=== PATIENT | female | born 1995 | race Two or more races ===

== ENCOUNTER 2024-04-13 21:43 | Emergency (ER) | payer MEDICAID, SELFPAY ==
[2024-04-13 21:44] VITALS: BMI 24.3
[2024-04-13 22:43] VITALS: BP 126/78; PULSE 82; RESP 20; TEMP 36.6; O2SAT 96
--- NOTE | 2024-04-13 22:48 | XR_ITS ---
Examination: CT abdomen and pelvis without contrast. Coronal 3-D reconstructions. Sagittal 2-D reconstructions. Date and time of exam:April 14, 2024 0020 hrs. Indications: Abdominal pain beginning 2 weeks ago CTDI: vol (mGy): 8.08 DLP: (mGycm): 436 Technique: Axial images of the abdomen have been obtained, 3 mm slice thickness Intravenous contrast material has not been administered. Low dose protocols were performed. One or more of the following dose reduction techniques were used; automated exposure control, adjustment of the mA and/or KV according to patient size, use of iterative reconstruction technique. Findings: Fatty infiltration throughout the liver, no focal liver or splenic lesions Mild hepatosplenomegaly No gallstones No pancreatic or adrenal mass Bilateral renal parenchymal scar formation Normal appendix No bowel obstruction No diverticulitis No pelvic mass Urinary bladder intact Impression: No acute process in the abdomen or pelvis
--- NOTE | 2024-04-13 22:48 | XR_ITS ---
Examination: Abdomen sonogram, Limited Date and time of exam: April 13, 2024 at 10:57 PM Indications: Abdominal pain 2 months with nausea Technique: Real-time shay scale transabdominal sonographic images of the upper abdomen obtained. Findings: Normal gallbladder Normal common bile duct 0.3 cm Pancreatic 0.0 cm Liver 16.6 cm fatty infiltration lobular contour no focal liver lesions Normal hepatopedal portal venous flow Patent IVC Impression: Normal gallbladder, normal common bile duct Minimal hepatomegaly fatty liver suspect primary hepatocellular disease
[2024-04-13 23:00] LABS: Collection Type, Urine Clean Catch; RBC,Urine 0 /hpf (0-3); WBC,Urine 0 /hpf (0-5)
[2024-04-13 23:12] LABS: Bacteria,Urine Rare; Bilirubin,Urine Negative (Negative); Blood,Urine Negative (Negative); Clarity,Urine Clear (Clear/Hazy); Color,Urine Lt-Violet (Lt Yel-Yel); Culture Indicated,Urine Not Indicated; Glucose, Urine Negative (Negative); Ketones,Urine Negative (Negative); Leukocyte Esterase,Urine Positive (Negative); Nitrite,Urine Negative (Negative); Protein,Urine Negative (Neg - Trace); Specific Gravity,Urine 1.004 (1.001-1.035); Squamous Epithelial Cell,Urine 1 /hpf (0-5); Urobilinogen,Urine Negative mg/dL (0.0-1.0)
[2024-04-13 23:15] LABS: HCG Qualitative,Urine Negative
[2024-04-14 00:14] LABS: Basophils # (Auto) 0.1 Thou/mm3 (0.0-0.2); Basophils % (Auto) 1 % (0-2.5); Eosinophils # (Auto) 0.2 Thou/mm3 (0.0-0.5); Eosinophils % (Auto) 2 % (0-10); Hematocrit 40.5 % (36.0-46.0); Hemoglobin 13.5 g/dL (12.0-16.0); Immature Granulocytes % (Auto) 0 % (0-0); Immature Granulocytes Auto 0.03 Thou/mm3 (0.00-0.00); Lymphocytes # (Auto) 2.5 Thou/mm3 (1.0-4.8); Lymphocytes % (Auto) 30 % (10-50); Mean Corpuscular HGB Conc 33.3 g/dl (31.0-37.0); Mean Corpuscular Volume 93 fL (80-100); Monocytes # (Auto) 0.5 Thou/mm3 (0.0-0.8); Monocytes % (Auto) 5 % (0-12); Neutrophils # (Auto) 5.2 Thou/mm3 (1.8-7.7); Neutrophils % (Auto) 62 % (37-80); Nucleated Red Blood Cell % 0 /100 WBC (0); Platelet Count 160 Thou/mm3 (140-440); RDW Standard Deviation 42.7 fL (36.4-46.3); Red Blood Count 4.35 Miln/mm3 (4.00-5.20); White Blood Count 8.5 Thou/mm3 (3.6-11.0)
[2024-04-14 00:28] LABS: Alanine Aminotransferase 29 U/L (10-49); Albumin, Serum 4.5 gm/dL (3.5-5.0); Alkaline Phosphatase 106 U/L (46-116); Amylase 97 U/L (30-118); Anion Gap 10 (7-16); Aspartate Amino Transferase 102 U/L (0-34); BUN/Creatinine Ratio 10 Ratio (12-20); Bilirubin,Direct 0.1 mg/dL (0.0-0.3); Bilirubin,Total 0.3 mg/dL (0.3-1.2); Blood Urea Nitrogen < 5 mg/dL (9-23); Calcium 9.2 mg/dL (8.3-10.6); Carbon Dioxide 23.4 mMol/L (20.0-31.0); Chloride 105 mMol/L (98-107); Creatinine (Component) 0.5 mg/dL (0.6-1.3); Glucose 97 mg/dL (74-106); Lipase 47 U/L (12-53); Magnesium 2.1 mg/dL (1.6-2.6); Osmolality,Calculated 272 (275-295); Potassium 4.2 mMol/L (3.4-5.1); Sodium 138 mMol/L (136-145); Total Protein 8.2 gm/dL (5.7-8.2); eGFR > 60 See Note
--- NOTE | 2024-04-14 01:02 | PRELIM_ITS ---
CT scan of the abdomen and pelvis without intravenous contrast (axial sections with sagittal and coronal reformats) April 14, 2024 0030 hours Clinical History: Abdominal pain. Findings: Lung bases are clear. Fatty infiltration is seen in the liver. Subtle dependent hyperdensities are seen in the gallbladder. The pancreas, spleen, adrenals and kidneys are unremarkable. No evidence of bowel obstruction. The appendix is normal (axial images 146 - 158/257). The urinary bladder is unremarkable. The uterus is unremarkable. No adnexal mass. No free fluid or free air. No significant retroperitoneal or mesenteric adenopathy. The osseous structures are unremarkable. Impression: No evidence of acute intra-abdominal or pelvic pathology on this noncontrast study. Other findings as described above. Report Electronically Signed By: Justin Alvarez 04/14/2024 1:01:55 AM [EST]
--- NOTE | 2024-04-14 01:16 | PD.EDABDPN ---
ED Abdominal Pain RME/HPI General Chief Complaint: Abdominal Pain Stated complaint: ABD PAIN Time seen by provider: 04/13/24 22:04 Arrival date/time: 04/13/24 21:43 RME / HPI RME / HPI narrative: This section includes all my notes and documentations, including HPI, PE, and ED course.? Harinder Mar MD HPI: 28 year old female here with one month history of on and off abdominal pain. Localizes the pain in the epigastric region. Occasional nausea. No fever or chills. No other complaints. ROS: All negative except as documented in HPI. Physical Exam: General:? Alert and oriented.? No acute distress when remaining still.?? Eyes:? Conjunctivae and lids clear.? ENT:? No nasal congestion.? Neck:? Supple.? Heart:? RRR.? Lungs:? No respiratory distress.? Good air movement.? No rhonchi, wheezing, rales.?? Abdomen:? Soft and nontender.?? Legs:? No clubbing, cyanosis, edema.? Skin:? Warm and dry.?? Neuro:? Alert and oriented X 3.?? I reviewed all diagnostic test results. My review of the abdominal CT report is?no acute findings. My review of the GB ultrasound report is no acute fnidings. Blood tests and urine tests?unremarkable. At this point, diagnoses include?Gastritis. Prescribed Omeprazole and Famotidine and recommended more outpatient workup. Based on my best medical judgment, made decision no further evaluation or treatment indicated at this time.? Patient understands and agrees to the discharge instructions customized and printed, see below. Discharge instructions from Dr. Mar: ?After extensive evaluation, there is no emergency such as appendicitis needing emergent surgery. Your symptoms may be due to starting stomach ulcer. ?To help heal the ulcer, take Omeprazole 40 mg every morning and Famotidine 40 mg at bedtime for a week then as needed. ?Zofran for nausea/vomiting.? Clear liquid diet for 24 hours.? Then slowly advance diet as tolerated. ?Avoid food and beverages that can trigger and worsen ulcers.? See attached handout. ?See a private doctor on 04/16/2024 for recheck and further care. To make sure there is no serious underlying abdominal condition, ask to help you get more care not available here in the ER.? Such as EGD or scoping the stomach, colonoscopy or scoping the colon, and a referral to see a water resources project manager. ?Seek immediate medical care with worsening or with any concerns. Harinder Mar MD Related Data Home Medications ?Medication ?Instructions ?Recorded ?Confirmed ferrous sulfate 325 mg (65 mg 325 mg PO QDAY 12/02/18 12/03/18 iron) tablet vitamins-iron fumarate 27 1 tab PO QDAY 12/02/18 12/03/18 mg iron-folic acid 0.8 mg tablet ( Vitamin) Previous Rx's ?Medication ?Instructions ?Recorded famotidine 40 mg tablet 40 mg PO QDAY #30 tabs 04/14/24 omeprazole 40 mg capsule,delayed 40 mg PO QDAY #30 caps 04/14/24 release Allergies Allergy/AdvReac Type Severity Reaction Status Date / Time No Known Allergies Allergy Verified 04/13/24 21:46 Course Quality Measures none Orders Category Date Time Status CT abdomen pelvis wo con Stat Exams 04/13/24 22:48 Completed US gall bladder Stat Exams 04/13/24 22:48 Completed Amylase Stat Lab 04/13/24 23:21 Completed BMP [Basic Metabolic Panel] Stat Lab 04/13/24 23:21 Completed CBC Stat Lab 04/13/24 23:21 Completed HCG Qualitative,Urine Stat Lab 04/13/24 22:49 Completed Lipase Stat Lab 04/13/24 23:21 Completed Liver Panel Stat Lab 04/13/24 23:21 Completed Magnesium Stat Lab 04/13/24 23:21 Completed UA, C/S IF [Urinalysis, C/S if Indicated] Stat Lab 04/13/24 22:49 Completed Vital Signs Vital signs: Vital Signs Temperature 97.9 F 04/13/24 22:43 Pulse Rate 82 04/13/24 22:43 Respiratory Rate 20 04/13/24 22:43 Blood Pressure 126/78 04/13/24 22:43 Pulse Oximetry (%) 96 04/13/24 22:43 Oxygen Delivery Method Room Air 04/13/24 22:43 Abdominal Pain MDM Patient data External records reviewed:: [facility] previous records Clinical information provided by:: patient Social determinants that could affect healthcare access:: none Patient has the following chronic illnesses:: None How is presenting disease/condition affected by chronic disease/condition?: no chronic disease Evaluation data The following diagnostics were reviewed and interpreted by me:: lab results and radiology exam(s) Lab and/or radiology exams considered but not ordered:: None Interpretation Summary: Gastritis Medications / Prescriptions Medications or Prescriptions considered but not ordered:: None Medication administrations:: None Consultations Consultation(s) initiated? (list below): No Diagnosis Differential diagnosis abdominal pain: acute appendicitis, calculus of kidney, constipation, diverticulitis, endometriosis, gastroenteritis, pancreatitis and small bowel obstruction Most likely diagnosis given after review of the tests above:: Gastritis Admission Indicated Admission indicated?: not indicated Explain why admission is indicated or not indicated:: Admission was not indicated Admission Request Was there a request for admission?: No Disposition Plan Disposition Plan: Discharge Discharge Attestation Discharge Attestation: The patient and all family members were given an opportunity to ask questions and understood the discharge instructions. Discharge instructions specifically effects, indications for sooner follow up or return to the emergency department, and the expected course of current diagnosis. Patient condition: Stable Discharge Plan Plan Patient Disposition: HOME (Self Care) Prescriptions/Referrals Prescriptions/Med Rec: New famotidine 40 mg tablet 40 mg PO QDAY Qty: 30 0RF omeprazole 40 mg capsule,delayed release(DR/EC) 40 mg PO QDAY Qty: 30 0RF No Action ferrous sulfate 325 mg (65 mg iron) Tablet 325 mg PO QDAY Vitamin 27 mg iron- 0.8 mg Tablet 1 tab PO QDAY Problem List Clinical Impression: Abdominal pain Patient/Caregiver Discharge Instructions Discharge Activity: activity as tolerated Education Materials: ED Gastritis (Adult) Additional Instructions: Discharge instructions from Dr. Mar: ?After extensive evaluation, there is no emergency such as appendicitis needing emergent surgery. Your symptoms may be due to starting stomach ulcer. ?To help heal the ulcer, take Omeprazole 40 mg every morning and Famotidine 40 mg at bedtime for a week then as needed. ?Zofran for nausea/vomiting.? Clear liquid diet for 24 hours.? Then slowly advance diet as tolerated. ?Avoid food and beverages that can trigger and worsen ulcers.? See attached handout. ?See a private doctor on 04/16/2024 for recheck and further care. To make sure there is no serious underlying abdominal condition, ask to help you get more care not available here in the ER.? Such as EGD or scoping the stomach, colonoscopy or scoping the colon, and a referral to see a water resources project manager. ?Seek immediate medical care with worsening or with any concerns. Print Language: Icelandic Stand Alone Forms: Lucie Award Info., Patient Portal Info Letter
== END 2024-04-14 01:24 | disposition home or self-care (01) ==
LOC: SERX 04-14 01:42
PROVIDERS: Emergency Provider Emergency Medicine
DX: K29.70 Gastritis, unspecified, without bleeding (principal)
CPT/HCPCS: 36415; 74176; 76705; 80048; 80076; 81001; 81025; 82150; 83690; 83735; 85025; 99284

== ENCOUNTER 2024-07-06 18:10 | Inpatient (IN) | payer MEDICAID, SELFPAY ==
[2024-07-06 18:45] VITALS: BP 94/61; PULSE 118; RESP 18; TEMP 39.4; O2SAT 99; BMI 28.9
--- NOTE | 2024-07-06 18:51 | EKG_ITS ---
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
--- NOTE | 2024-07-06 18:51 | XR_ITS ---
Examination: PA lateral chest 2 views TECHNIQUE: Upright PA lateral chest 2 views Date time: July 06, 2024 1903 hours Comparison October 07, 2023 INDICATION: Fever coughing for 2 days, sepsis alert today FINDINGS: Normal heart size. Lungs are clear. The osseous structures are intact IMPRESSION: No active disease
--- NOTE | 2024-07-06 18:51 | PD.EDRME ---
Rapid Medical Screening Exam RME Arrival date/time: 07/06/24 18:10 28 year old female present to ED for c/o of fever for 2 days, near syncope, weakness I have greeted and performed a focused initial assessment of this patient. A comprehensive ED assessment and evaluation of the patient, analysis of all test results, and completion of the medical decision making process will be conducted by additional ED providers. Chief Complaint: General Adult/Misc Complain Time Seen by Provider: 07/06/24 18:46 Vital signs: Vital Signs Temperature 103.0 F H 07/06/24 18:45 Pulse Rate 118 H 07/06/24 18:45 Respiratory Rate 18 07/06/24 18:45 Blood Pressure 94/61 07/06/24 18:45 Pulse Oximetry (%) 99 07/06/24 18:45 Oxygen Delivery Method Room Air 07/06/24 18:45
[2024-07-06 19:40] VITALS: TEMP 39.4
[2024-07-06] MEDS: ACETAMINOPHEN 500 MG TABLET 1000 MG PO (19:40)
[2024-07-06 20:09] LABS: Lactate (Lactic Acid) 2.6 mMol/L (0.4-2.0)
[2024-07-06 20:12] LABS: Basophils % (Auto) 1 % (0-2.5); Eosinophils % (Auto) 0 % (0-10); Hematocrit 33.3 % (36.0-46.0); Hemoglobin 11.8 g/dL (12.0-16.0); Immature Granulocytes % (Auto) 1 % (0-0); Immature Granulocytes Auto 0.09 Thou/mm3 (0.00-0.00); Lymphocytes # (Auto) 0.7 Thou/mm3 (1.0-4.8); Lymphocytes % (Auto) 11 % (10-50); Mean Corpuscular HGB Conc 35.4 g/dl (31.0-37.0); Mean Corpuscular Hemoglobin 29.7 pg (25.0-35.0); Mean Corpuscular Volume 84 fL (80-100); Monocytes # (Auto) 0.8 Thou/mm3 (0.0-0.8); Monocytes % (Auto) 13 % (0-12); Neutrophils # (Auto) 4.7 Thou/mm3 (1.8-7.7); Neutrophils % (Auto) 74 % (37-80); Nucleated Red Blood Cell % 0 /100 WBC (0); RDW Standard Deviation 40.9 fL (36.4-46.3); Red Blood Count 3.97 Miln/mm3 (4.00-5.20); White Blood Count 6.4 Thou/mm3 (3.6-11.0)
[2024-07-06] MEDS: cefTRIAXone/D5w 1gm IV premix 1 GM/50 ML BAG IV (20:13)
[2024-07-06] MEDS: SODIUM CHLORIDE 0.9% 1000 ML 1,000 ML 999 ML IV (20:14)
[2024-07-06 20:26] LABS: Partial Thromboplastin Time 25.6 Seconds (22.0-36.0); Prothrombin Time 11.1 Seconds (9.0-12.2)
[2024-07-06 20:28] LABS: B-Type Natriuretic Peptide < 20 pg/mL (0-100)
[2024-07-06 20:43] LABS: Platelet Count 57 Thou/mm3 (140-440); Slide Review Platelets confirmed
[2024-07-06 20:45] LABS: Alanine Aminotransferase 25 U/L (10-49); Albumin, Serum 4.5 gm/dL (3.5-5.0); Albumin/Globulin Ratio 1.1 (1.2-2.2); Alkaline Phosphatase 56 U/L (46-116); Anion Gap 11 (7-16); Aspartate Amino Transferase 73 U/L (0-34); BUN/Creatinine Ratio 19 Ratio (12-20); Bilirubin,Total 1.2 mg/dL (0.3-1.2); Blood Urea Nitrogen 23 mg/dL (9-23); Calcium 8.9 mg/dL (8.3-10.6); Calcium (Corrected) 8.9 mg/dL (8.5-10.1); Carbon Dioxide 22.2 mMol/L (20.0-31.0); Chloride 92 mMol/L (98-107); Creatinine (Component) 1.2 mg/dL (0.6-1.3); Estimated Creatinine Clearance 58.6 mL/min (>60); Glucose 121 mg/dL (74-106); Lipase 78 U/L (12-53); Magnesium 1.7 mg/dL (1.6-2.6); Osmolality,Calculated 256 (275-295); Procalcitonin 9.32 ng/ml (0.0-0.49); Sodium 125 mMol/L (136-145); Total Protein 8.5 gm/dL (5.7-8.2); Troponin I < 0.020 ng/mL (0.0-0.045); eGFR > 60 See Note
[2024-07-06 20:48] LABS: Phosphorous 0.9 mg/dL (2.4-5.1); Potassium 2.5 mMol/L (3.4-5.1)
[2024-07-06 21:31] VITALS: BP 96/61; PULSE 76; RESP 18; TEMP 37.3; O2SAT 100
[2024-07-06 21:31] LABS: Collection Type, Urine Clean Catch
[2024-07-06 21:33] LABS: LDH (Lactate Dehydrogenase) 260 U/L (120-246)
[2024-07-06 21:40] LABS: Bacteria,Urine 3+; Bilirubin,Urine Negative (Negative); Blood,Urine 3+ (Negative); Clarity,Urine Turbid (Clear/Hazy); Color,Urine Yellow (Lt Yel-Yel); Glucose, Urine Negative (Negative); Ketones,Urine Negative (Negative); Leukocyte Esterase,Urine Positive (Negative); Nitrite,Urine Negative (Negative); PH,Urine 6.5 (5.0-7.0); Protein,Urine 3+ (Neg - Trace); RBC,Urine 13 /hpf (0-3); Specific Gravity,Urine 1.018 (1.001-1.035); Squamous Epithelial Cell,Urine 1 /hpf (0-5); Urobilinogen,Urine Negative mg/dL (0.0-1.0); WBC,Urine 22 /hpf (0-5)
[2024-07-06 23:04] LABS: Reflex Lactate? Y
[2024-07-06 23:45] LABS: Lactic Acid, 3 HR 1.2 mMol/L (0.4-2.0)
[2024-07-07] VITALS (12 sets, daily range): BP systolic 99–120; BP diastolic 61–80; PULSE 68–103; RESP 17–100; TEMP 36.6–38.3; O2SAT 98–100
--- NOTE | 2024-07-07 00:07 | XR_ITS ---
Examination: CT abdomen with intravenous contrast CT pelvis with intravenous contrast 2-D coronal reconstructions 2-D sagittal reconstructions Date and time of exam:July 07, 2024 0306 hours Comparison April 14, 2024 INDICATIONS: Abdominal pain today, hypophosphatemia on laboratory examination today. CTDI: vol (mGy) 8.36 DLP: (mGycm) 950 Technique: Multiple axial sections of the abdomen and pelvis have been obtained. 64 slice high-resolution scanner used. 3 mm axial sections have been obtained, post intravenous injection 70 2-D sagittal, coronal reconstructions obtained. Low dose protocols were performed. One or more of the following dose reduction techniques were used; automated exposure control, adjustment of the mA and/or KV according to patient size, use of iterative reconstruction technique. Findings: Diffuse fatty infiltration throughout the liver Mild splenomegaly 14 cm No gallstones No pancreatic or adrenal mass Enlarged edematous left kidney with multiple areas of edema 14 mm cyst versus early abscess posterior left kidney Left perinephric stranding Aorta normal size No bowel obstruction No pericecal inflammatory change Anteverted uterus with 10 mm uterine fundal mass Minimal thickening of the urinary bladder wall IMPRESSION: Findings most consistent with left polyarthritis 14 mm cyst versus early abscess posterior left kidney 10 mm uterine fundal mass, consider pelvic sonography
[2024-07-07] MEDS: SODIUM CHLORIDE 0.9% 500 ML 500 ML 999 ML IV (00:14)
[2024-07-07] MEDS: POTASSIUM CHL 10 mEq IVPB 10 MEQ/100 ML BAG 100 MEQ IV ×4 (00:14→03:56)
[2024-07-07] MEDS: SODIUM CHLORIDE 0.9% 1000 ML 1,000 ML 999 ML IV (00:31)
[2024-07-07] MEDS: POT PHOS 15 mMol in NS 250 ML 15 MMOL/250 ML BAG 62.5 MMOL IV ×2 (01:18→06:18)
[2024-07-07 01:53] LABS: HCG Qualitative,Urine Negative
--- NOTE | 2024-07-07 02:20 | PC.NURSE ---
At this time, pt is out of bed to use restroom.
--- NOTE | 2024-07-07 03:05 | PC.NURSE ---
Pt taken to CT via wheelchair
--- NOTE | 2024-07-07 04:54 | PRELIM_ITS ---
CT scan of the abdomen and pelvis with intravenous contrast (axial sections with sagittal and coronal reformats): July 07, 2024 at 0306 hours Clinical History: Nausea, vomiting and diarrhea, w/severe hypo K+, hyphosphotemia, hypo N+. Comparison: None. Findings: Clear lung bases. The liver, gallbladder, adrenal glands, pancreas are unremarkable. The spleen is enlarged, 13.8 cm long. The left kidney is edematous most prominently in the lower pole lower pole with loss of normal architecture. There is a 1.7 cm hypodensity within a 5 cm diameter edematous area. No urinary tract stone or obstruction is identified. The urinary bladder is normal. There is no free intraperitoneal air or fluid. There is no adnexal cyst or mass. The appendix is normal, (best seen on image 172). The abdominal wall is unremarkable. Bowel caliber is normal. Impression: Splenomegaly. Probable left pyelonephritis with developing abscess. Recommend follow-up to exclude a mass. Discussion Details: Results verbally communicated to : AMBREEN Overton at 04:35 AM 07/07/2024 Report Electronically Signed By: lOvin Gastelum 07/07/2024 4:54:07 AM [EST]
--- NOTE | 2024-07-07 05:00 | PC.NURSE ---
AMBREEN Hand at bedside to discuss plan of care. Pt made aware she will be admitted to the hospital; however, at this time pt states she wants to go home. Discuss risks and consequence of leaving against medical advice. Pt verbalized understanding.
--- NOTE | 2024-07-07 05:00 | PC.NURSE ---
AMBREEN Hand at bedside to discuss plan of care.
--- NOTE | 2024-07-07 05:48 | PD.EDADULT ---
ED General RME/HPI General Chief complaint: General Adult/Misc Complain Stated complaint: FEVER X 2 DAYS, WEAKNES, VISION CHANGES Time Seen by Provider: 07/06/24 18:46 Arrival date/time: 07/06/24 18:10 28-year-old female presents to the ED with complaint of weakness and fatigue, fever, lightheadedness, nausea and vomiting as well as diarrhea. She denies any recent upper respiratory symptoms of runny nose, nasal congestion, ear pain, sore throat, sinus pressure or drainage, cough, shortness of breath, chest pain, abdominal pain, dysuria or urinary frequency. Mode of arrival: ambulatory Limitations: no limitations RME / HPI RME / HPI narrative: 07/06/24 18:10 28 year old female present to ED for c/o of fever for 2 days, near syncope, weakness I have greeted and performed a focused initial assessment of this patient. A comprehensive ED assessment and evaluation of the patient, analysis of all test results, and completion of the medical decision making process will be conducted by additional ED providers. Related Data Home Medications ?Medication ?Instructions ?Recorded ?Confirmed ferrous sulfate 325 mg (65 mg 325 mg PO QDAY 12/02/18 12/03/18 iron) tablet vitamins-iron fumarate 27 1 tab PO QDAY 12/02/18 12/03/18 mg iron-folic acid 0.8 mg tablet ( Vitamin) Previous Rx's ?Medication ?Instructions ?Recorded famotidine 40 mg tablet 40 mg PO QDAY #30 tabs 04/14/24 omeprazole 40 mg capsule,delayed 40 mg PO QDAY #30 caps 04/14/24 release Allergies Allergy/AdvReac Type Severity Reaction Status Date / Time No Known Allergies Allergy Verified 07/06/24 18:13 Review of Systems Review of Systems Systems Reviewed: All systems reviewed, normal except as documented ED Exam Narrative Physical exam: Physical exam reveals a 28-year-old female, nontoxic-appearing, no acute distress, resting comfortably on the gurney. Lungs are clear, regular rate and rhythm without murmurs, abdomen is soft and nontender, no CVA tenderness. General Limitations: Present no limitations Course Course Course Narrative: 28-year-old female presents to the ED with complaint of weakness and fatigue, fever, lightheadedness, nausea and vomiting as well as diarrhea. She denies any recent upper respiratory symptoms of runny nose, nasal congestion, ear pain, sore throat, sinus pressure or drainage, cough, shortness of breath, chest pain, abdominal pain, dysuria or urinary frequency. Physical exam reveals a 28-year-old female, nontoxic-appearing, no acute distress, resting comfortably on the gurney. Lungs are clear, regular rate and rhythm without murmurs, abdomen is soft and nontender, no CVA tenderness. Vital signs reveal a BP 94/61, P118, RR 18, T103.0, O2 sat 99% on room air. CBC reveals a normal white count with minimally low H&H of 11.8/33.3, platelet count is 57. CMP reveals sodium 125, chloride 92, potassium 2.5, glucose 121, osmolality 256, lactic acid 1.2, phosphorus 0.9, AST 73, LDH 260, troponin less than 0.20 and Pro-Calc 9.32. Urinalysis reveals turbid yellow urine with a pH of 6.5 and specific gravity of 1.018. 3+ protein, 3+ blood, leukocyte esterase positive, nitrite negative, 13 RBCs, 22 WBCs, 3+ bacteria, urine hCG is negative. CT Abd/Pelvis: Impression: Splenomegaly. Probable left pyelonephritis with developing abscess. Recommend follow-up to exclude a mass. Patient was given Rocephin 1gm IV as well as 2 liters of Sodium Chloride Sepsis Fluids, K Riders x4 were ordered as well as Potassium Phos. Quality Measures Current suspected stage: sepsis Possible source: genitourinary Blood cultures ordered: completed in ED Antibiotic ordered: Yes Pertinent labs: 07/06/24 07/06/24 19:37 23:33 Lactic Acid 2.6 H mMol/L 1.2 mMol/L (0.4-2.0) (0.4-2.0) Procalcitonin 9.32 H ng/ml (0.0-0.49) sepsis Orders Category Date Time Status Bedside COVID-19 Antigen Test NOW Care 07/06/24 18:52 Active Bedside Influenza A&B Antigen Test NOW Care 07/06/24 18:[address] Screening NOW Care 07/06/24 23:[address] Screening X1 Care 07/06/24 23:50 Active Modular Set Crew Member STAT Care 07/06/24 18:51 Active Continuous Pulse Oximetry STAT Care 07/06/24 18:51 Completed EKG (ED ONLY) *Do not use* NOW Care 07/06/24 18:51 Completed In and Out Catheter X1PRN Care 07/06/24 18:51 Active Insert IV NOW Care 07/06/24 18:51 Active NPO STAT Care 07/06/24 18:51 Active Strict Intake and Output Routine Care 07/06/24 18:[address] abdomen pelvis w con Stat Exams 07/07/24 00:07 Taken EKG (ED Only) Stat Exams 07/06/24 18:51 Draft XR chest 2V Stat Exams 07/06/24 18:51 Completed B-Type Natriuretic Peptide Stat Lab 07/06/24 19:37 Completed Blood Culture (Lab) Stat Lab 07/06/24 19:37 Received CBC Stat Lab 07/06/24 19:37 Completed Comprehensive Metabolic Panel Stat Lab 07/06/24 19:37 Completed HCG Qualitative,Urine Stat Lab 07/06/24 20:52 Completed LDH (Lactate Dehydrogenase) Stat Lab 07/06/24 19:37 Completed Lactate (Lactic Acid) Stat Lab 07/06/24 19:37 Completed Lactic Acid, 3 HR Stat Lab 07/06/24 23:33 Completed Lipase Stat Lab 07/06/24 19:37 Completed Magnesium Stat Lab 07/06/24 19:37 Completed Partial Thromboplastin Time Stat Lab 07/06/24 19:37 Completed Phosphorous Stat Lab 07/06/24 19:37 Completed Procalcitonin Stat Lab 07/06/24 19:37 Completed Prothrombin Time with INR Stat Lab 07/06/24 19:37 Completed Troponin I Stat Lab 07/06/24 19:37 Completed Urinalysis Stat Lab 07/06/24 20:52 Completed Urine Culture Stat Lab 07/06/24 20:52 Received Acetaminophen Tab [Tylenol ES Tab] Med 07/06/24 18:51 Discontinued 1,000 mg PO X1 ONE POT PHOS 15 mMol in NS 250 ML [Pot Phos 15 mMol in NS Med 07/06/24 21:02 Discontinued 250 ml] 15 mmol in 250 ml IV Q4H POTASSIUM CHL 10 mEq IVPB [Kcl Ivpb] Med 07/06/24 21:01 Discontinued 10 meq in 100 ml IV Q1H POTASSIUM CHL 10 mEq IVPB [Kcl Ivpb] Med 07/07/24 00:45 Discontinued 10 meq in 100 ml IV Q1H Sodium Chloride 0.9% 1000 ml [Ns] 1,000 ml Med 07/06/24 18:52 Discontinued IV 999 mls/hr Sodium Chloride 0.9% 1000 ml [Ns] 1,000 ml Med 07/07/24 00:07 Discontinued IV 999 mls/hr Sodium Chloride 0.9% 500 ml [Ns] 500 ml Med 07/06/24 23:50 Discontinued IV 999 mls/hr cefTRIAXone/D5w 1gm IV premix [Rocephin/D5w 1gm IV Med 07/06/24 18:51 Discontinued premix] 1 gm in 50 ml IV X1 Oxygen Delivery NOW RT 07/06/24 18:51 Active Vital Signs Vital signs: Vital Signs Temperature 103.0 F H 07/06/24 18:45 Pulse Rate 118 H 07/06/24 18:45 Respiratory Rate 18 07/06/24 18:45 Blood Pressure 94/61 07/06/24 18:45 Pulse Oximetry (%) 99 07/06/24 18:45 Oxygen Delivery Method Room Air 07/06/24 18:45 Discharge Plan Plan Patient Disposition: Admit Acute Care w/in Hospital Discharge Disposition comment: Stable Prescriptions/Referrals Prescriptions/Med Rec: No Action ferrous sulfate 325 mg (65 mg iron) Tablet 325 mg PO QDAY Vitamin 27 mg iron- 0.8 mg Tablet 1 tab PO QDAY famotidine 40 mg tablet 40 mg PO QDAY Qty: 30 0RF omeprazole 40 mg capsule,delayed release(DR/EC) 40 mg PO QDAY Qty: 30 0RF Referrals: Zoë Blake [employer] [Primary Care Provider] - In 1 week Problem List Clinical Impression: Pyelonephritis, Sepsis, Acute hypokalemia, Acute hyponatremia Patient/Caregiver Discharge Instructions Print Language: Bengali Stand Alone Forms: Lucie Award Info., Patient Portal Info Letter PA/PIECE MEAT TRIMMER Supervising Physician PA/PIECE MEAT TRIMMER Supervising Physician: Dr. Isabela GUTIERREZ Narrative MDM hospital course (for use when minimal MDM required): 28-year-old female presents to the ED with complaint of weakness and fatigue, fever, lightheadedness, nausea and vomiting as well as diarrhea. She denies any recent upper respiratory symptoms of runny nose, nasal congestion, ear pain, sore throat, sinus pressure or drainage, cough, shortness of breath, chest pain, abdominal pain, dysuria or urinary frequency. Physical exam reveals a 28-year-old female, nontoxic-appearing, no acute distress, resting comfortably on the gurney. Lungs are clear, regular rate and rhythm without murmurs, abdomen is soft and nontender, no CVA tenderness. Vital signs reveal a BP 94/61, P118, RR 18, T103.0, O2 sat 99% on room air. CBC reveals a normal white count with minimally low H&H of 11.8/33.3, platelet count is 57. CMP reveals sodium 125, chloride 92, potassium 2.5, glucose 121, osmolality 256, lactic acid 1.2, phosphorus 0.9, AST 73, LDH 260, troponin less than 0.20 and Pro-Calc 9.32. Urinalysis reveals turbid yellow urine with a pH of 6.5 and specific gravity of 1.018. 3+ protein, 3+ blood, leukocyte esterase positive, nitrite negative, 13 RBCs, 22 WBCs, 3+ bacteria, urine hCG is negative. CT Abd/Pelvis: Impression: Splenomegaly. Probable left pyelonephritis with developing abscess. Recommend follow-up to exclude a mass. Patient was given Rocephin 1gm IV as well as 2 liters of Sodium Chloride Sepsis Fluids, K Riders x4 were ordered as well as Potassium Phos. Clinical Information Provided by: patient Medical Records reviewed None Meds/Rx considered, not ordered None Labs/Rad/Tests considered, not ordered None Chronic Illness/Social Conditions which may negatively complicate care or outcome(s)-explain: None or not applicable Labs Lab(s) Interpretation(s): CBC reveals a normal white count with minimally low H&H of 11.8/33.3, platelet count is 57. CMP reveals sodium 125, chloride 92, potassium 2.5, glucose 121, osmolality 256, lactic acid 1.2, phosphorus 0.9, AST 73, LDH 260, troponin less than 0.20 and Pro-Calc 9.32. Urinalysis reveals turbid yellow urine with a pH of 6.5 and specific gravity of 1.018. 3+ protein, 3+ blood, leukocyte esterase positive, nitrite negative, 13 RBCs, 22 WBCs, 3+ bacteria, urine hCG is negative. Imaging Imaging Interpretation(s): CT Abd/Pelvis: Impression: Splenomegaly. Probable left pyelonephritis with developing abscess. Recommend follow-up to exclude a mass. Medication Administration(s) Medication Administration History Discontinued Medications Acetaminophen (Acetaminophen 500 Mg Tablet) 1,000 mg PO X1 ONE Stop: 07/06/24 18:52 Last Admin: 07/06/24 19:40 Dose: 1,000 mg Documented By: Ceftriaxone Sodium/Dextrose (Rocephin/D5w 1gm Iv Premix) 1 gm in 50 mls @ 100 mls/hr IV X1 ONE Stop: 07/06/24 19:20 Last Infusion: 07/06/24 20:53 Dose: Infused Documented By: Admin: 07/06/24 20:13 Dose: 100 mls/hr Documented By: SE Sodium Chloride (Ns) 1,000 mls @ 999 mls/hr IV .Q1H1M ONE Stop: 07/06/24 19:52 Last Infusion: 07/06/24 22:55 Dose: Infused Documented By: Admin: 07/06/24 20:14 Dose: 999 mls/hr Documented By: SE Potassium Chloride (Kcl Ivpb) 10 meq in 100 mls @ 100 mls/hr IV Q1H KODY Stop: 07/07/24 01:00 Last Infusion: 07/07/24 01:14 Dose: Infused Documented By: Admin: 07/07/24 01:05 Dose: Not Given Documented By: CCT Non-Admin Reason: Wrong Time Admin: 07/07/24 01:05 Dose: Not Given Documented By: CCT Non-Admin Reason: Wrong Time Admin: 07/07/24 01:05 Dose: Not Given Documented By: CCT Non-Admin Reason: Wrong Time Admin: 07/07/24 00:14 Dose: 100 mls/hr Documented By: CCT Potassium Phosphate (Pot Phos 15 Mmol In Ns 250 Ml) 15 mmol in 250 mls @ 62.5 mls/hr IV Q4H KODY Stop: 07/07/24 05:01 Last Admin: 07/07/24 01:18 Dose: 62.5 mls/hr Documented By: CCT Sodium Chloride (Ns) 500 mls @ 999 mls/hr IV .Q31M ONE Stop: 07/07/24 00:20 Last Infusion: 07/07/24 01:21 Dose: Infused Documented By: Admin: 07/07/24 00:14 Dose: 999 mls/hr Documented By: CCT Sodium Chloride (Ns) 1,000 mls @ 999 mls/hr IV .Q1H1M ONE Stop: 07/07/24 01:07 Last Infusion: 07/07/24 01:22 Dose: Infused Documented By: Admin: 07/07/24 00:31 Dose: 999 mls/hr Documented By: CCT Potassium Chloride (Kcl Ivpb) 10 meq in 100 mls @ 100 mls/hr IV Q1H KODY Stop: 07/07/24 03:44 Last Infusion: 07/07/24 05:15 Dose: Infused Documented By: Admin: 07/07/24 03:56 Dose: 100 mls/hr Documented By: Infusion: 07/07/24 03:24 Dose: Infused Documented By: Admin: 07/07/24 02:24 Dose: 100 mls/hr Documented By: Infusion: 07/07/24 02:20 Dose: Infused Documented By: Admin: 07/07/24 01:14 Dose: 100 mls/hr Documented By: CCT Ceftriaxone 1 g, sodium chloride/sepsis fluids 2500 mL, potassium chloride 40 mEq, potassium phosphate 15 mmol administered, and Tylenol 1 g p.o. Diagnosis Differential Diagnosis ED Complaint MDM: Influenza, COVID, pneumonia, colitis, pyelonephritis, diverticulitis Diagnoses ruled out and/or further discussions: Pneumonia, colitis, diverticulitis
--- NOTE | 2024-07-07 06:00 | PC.NURSE ---
At this time, pt states she is ok with being admitted. AMBREEN Hand made aware.
--- NOTE | 2024-07-07 06:15 | PC.NURSE ---
Pt out of bed to use restroom.
--- NOTE | 2024-07-07 07:47 | XR_ITS ---
Examination: Retroperitoneal ultrasound, complete Technique: Multiple high resolution grayscale images of the retroperitoneum obtained, including kidneys and bladder. Exam date and time:July 07, 2024 0810 hrs. Indications: Fever vomiting diarrhea beginning 6 days ago Findings: Right kidney 12.5 cm cortex 2.0 cm Left kidney 13.0 cm renal cortex 1.8 cm Mild renal parenchymal scar formation No hydronephrosis No bladder mass or bladder calculi Bladder prevoid volume 433 cc Impression: Mild bilateral renal parenchymal scar formation No hydronephrosis
[2024-07-07] MEDS: PIPER/TAZO 3.375 GM PREMIX 3.375 GM/50 ML BAG IV (08:04)
--- NOTE | 2024-07-07 08:56 | EDNOTE_ITS ---
Emergency Room Addendum Addendum Narrative: 0630: Care assumed from Peace Storey. Past medical, surgical, social and family history reviewed. Vitals and home medications reviewed. I will assume the care of the patient at this time, pending remainder of diagnostic tests and final disposition. Please refer to the emergency department record for history and examination from initial visit.? Physical exam by me shows patient under no acute distress at this time. 0939: Discussed test HPI, PMHx, lab, radiology results and/or management with resident working with hospitalist Dr. Chavez. Will admit for further evaluation and management. Accepts patient for admission. Diagnoses: -Acute hypokalemia -UTI -Elevated procalcitonin RADIOLOGY Procedure(s): US renal BI Accession Number(s): [id number] cc: Dave Galloway MD; Yinka Pedroza MD; Zoë Blake NP~ Examination: Retroperitoneal ultrasound, complete Technique: Multiple high resolution grayscale images of the retroperitoneum obtained, including kidneys and bladder. Exam date and time:July 07, 2024 0810 hrs. Indications: Fever vomiting diarrhea beginning 6 days ago Findings: Right kidney 12.5 cm cortex 2.0 cm Left kidney 13.0 cm renal cortex 1.8 cm Mild renal parenchymal scar formation No hydronephrosis No bladder mass or bladder calculi Bladder prevoid volume 433 cc Impression: Mild bilateral renal parenchymal scar formation No hydronephrosis Dictated By: Yinka Pedroza MD Procedure(s): CT abdomen pelvis w con Accession Number(s): [id number] cc: Yinka Pedroza MD; Zoë Blake NP; Peace Storey Examination: CT abdomen with intravenous contrast CT pelvis with intravenous contrast 2-D coronal reconstructions 2-D sagittal reconstructions Date and time of exam:July 07, 2024 0306 hours Comparison April 14, 2024 INDICATIONS: Abdominal pain today, hypophosphatemia on laboratory examination today. CTDI: vol (mGy) 8.36 DLP: (mGycm) 950 Technique: Multiple axial sections of the abdomen and pelvis have been obtained. 64 slice high-resolution scanner used. 3 mm axial sections have been obtained, post intravenous injection 70 2-D sagittal, coronal reconstructions obtained. Low dose protocols were performed. One or more of the following dose reduction techniques were used; automated exposure control, adjustment of the mA and/or KV according to patient size, use of iterative reconstruction technique. Findings: Diffuse fatty infiltration throughout the liver Mild splenomegaly 14 cm No gallstones No pancreatic or adrenal mass Enlarged edematous left kidney with multiple areas of edema 14 mm cyst versus early abscess posterior left kidney Left perinephric stranding Aorta normal size No bowel obstruction No pericecal inflammatory change Anteverted uterus with 10 mm uterine fundal mass Minimal thickening of the urinary bladder wall IMPRESSION: Findings most consistent with left polyarthritis 14 mm cyst versus early abscess posterior left kidney 10 mm uterine fundal mass, consider pelvic sonography Dictated By: Yinka Pedroza MD Procedure(s): XR chest 2V Accession Number(s): [id number] cc: Yinka Pedroza MD; Zoë Blake NP; Iban Beltran PA-C~ Examination: PA lateral chest 2 views TECHNIQUE: Upright PA lateral chest 2 views Date time: July 06, 2024 1903 hours Comparison October 07, 2023 INDICATION: Fever coughing for 2 days, sepsis alert today FINDINGS: Normal heart size. Lungs are clear. The osseous structures are intact IMPRESSION: No active disease Dictated By: Yinka Pedroza MD
--- NOTE | 2024-07-07 09:45 | ESHP_ITS ---
Documentation for date of: 07/07/24 HPI History of Present Illness Chief complaint: Nausea/vomiting/diarrhea History of present illness: 28-year-old female G4, P5 (all term pregnancies, 1 set of twins) with past medical history of gastric ulcer presenting to the ED on 07/07 with episodes of nausea/vomiting/diarrhea along with fever and chills. 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 Patient states that she went home and that is when she started developing some episode of chills but she did not check her temperature. Patient denies having any sick contacts, recent travels or any changes to dietary habits. Of note, patient has a prior admission for septic shock secondary to urinary tract infection. Patient denies having any dysuria, increased urinary frequency but does state that she has lower back pain which has progressively worsened throughout the week. Patient otherwise denies any concerning cardiac symptoms at this time and denies taking any prescription medication. Medical history: As listed Surgical history: x 1 Allergies: NKDA Medications: Pending official med rec, patient denies taking any prescription medications Family history: Noncontributory Social history: Patient currently does not work, has been incarcerated in the past, has 5 children, lives with spouse and children, denies any tobacco or illicit drug use. Occasional alcohol 1 glass of wine every other day or so. ROS: All 12 systems assessed and the patient denies unless otherwise stated in HPI In the ED, patient presented with soft blood pressure 94/61, tachycardic 118, respiratory rate of 18, febrile 103.0 ?F but satting 99 on room air. Pertinent lab findings included WBC of 6.4, hemoglobin 11.8 with MCV of 84, platelet count of 57 sodium 125, potassium 2.5, phosphorus 0.9, magnesium 1.7, AST 73, ALT 25, alk phos 56, LDH 260, troponin less than 0.020, BNP less than 20. Urinalysis shows turbid urine with 3+ proteinuria, 3+ hematuria, pyuria and bacteria Beta- hCG negative. Chest x-ray showed no active disease, EKG showed sinus tachycardia with left axis deviation but no concerning ST changes, CT abdomen pelvis initially showed a 14 mm cyst/early abscess in the posterior left kidney, 10 mm uterine fundal mass, renal ultrasound showed mild bilateral renal parenchymal scar but no hydronephrosis. And pelvic ultrasound showed no ureteral or intrauterine mass. Patient will be admitted for sepsis secondary to urinary tract infection and started on IV antibiotics. Exam Vital Signs Temp Pulse Resp BP Pulse Ox O2 Del Method 98.8 F 103 H 17 120/80 99 Room Air 07/07/24 08:00 07/07/24 08:00 07/07/24 08:00 07/07/24 08:00 07/07/24 08:00 07/07/24 08:00 Narrative Exam Physical Exam: GENERAL: Awake, answering questions appropriately, appears stated age HEENT: NC/AT. Moist mucosa. PERRLA/EOMI. CARDIO: Heart RRR, no obvious murmurs, no JVD. PULM: No coughing or visible SOB. Lungs CTA B/L. GI: Abdomen soft, NT/ND, +BS. URO/UPTWIST SPINNER: CVA tenderness noted, especially on the left SKIN/MSK/EXT: No wounds/discoloration/rashes/edema/amputations. +Pedal pulses present B/L. NEURO: Oriented x3, Moves extremities x4, no focal neurologic deficits noted Results: Labs 07/06/24 19:37 07/07/24 09:59 Labs: Short CBC 07/06/24 Range/Units 19:37 WBC 6.4 (3.6-11.0) Thou/mm3 Hgb 11.8 L (12.0-16.0) g/dL Hct 33.3 L (36.0-46.0) % Plt Count 57 L (140-440) Thou/mm3 BMP 07/06/24 19:37 Sodium 125 L Potassium 2.5 L* Chloride 92 L Carbon Dioxide 22.2 BUN 23 Creatinine 1.2 Glucose 121 H Calcium 8.9 Cardiac Enzymes 07/06/24 Range/Units 19:37 Troponin I < 0.020 (0.0-0.045) ng/mL Liver Function 07/06/24 Range/Units 19:37 Total Bilirubin 1.2 (0.3-1.2) mg/dL AST 73 H (0-34) U/L ALT 25 (10-49) U/L Alkaline Phosphatase 56 (46-116) U/L Albumin 4.5 (3.5-5.0) gm/dL Urine 07/06/24 Range/Units 20:52 Urine Color Yellow (Lt Yel-Yel) Urine Clarity Turbid A (Clear/Hazy) Urine pH 6.5 (5.0-7.0) Ur Specific [place] 1.018 (1.001-1.035) Urine Protein 3+ A (Neg - Trace) Urine Glucose (UA) Negative (Negative) Quality Measures Quality Measures sepsis Current suspected stage: sepsis Possible source: genitourinary Blood cultures ordered: completed in ED Antibiotic ordered: Yes Medications Home Medications and Allergies Home Medications ?Medication ?Instructions ?Recorded ?Confirmed ?Type ferrous sulfate 325 mg (65 mg 325 mg PO QDAY 12/02/18 12/03/18 History iron) tablet vitamins-iron fumarate 27 1 tab PO QDAY 12/0212/03/18 History mg iron-folic acid 0.8 mg tablet ( Vitamin) Allergies Allergy/AdvReac Type Severity Reaction Status Date / Time No Known Allergies Allergy Verified 07/06/24 18:13 Visit Medications Acetaminophen (Acetaminophen 325 Mg Tablet) 650 mg PO Q6H PRN PRN Reason: Pain 1-3 and/or Fever >100.1 Stop: 08/06/24 09:37 Heparin Sodium (Porcine) (Heparin Sod Inj 5000 Unit/Ml Vial) 5,000 unit SC Q12HR KODY Stop: 07/21/24 20:59 Magnesium Sulfate (Magnesium Sulfate Ivpb) 4 gm in 50 mls @ 12.5 mls/hr IV X1 ONE Stop: 07/07/24 13:43 Ondansetron HCl (Ondansetron Inj 2 Mg/Ml Inj 2 Ml) 4 mg IV Q6H PRN; Protocol PRN Reason: NAUSEA OR VOMITING Stop: 08/06/24 09:37 Sennosides (Senna Tablet) 1 tab PO QDAY KODY; Protocol Stop: 08/07/24 08:59 Discontinued Medications Acetaminophen (Acetaminophen 500 Mg Tablet) 1,000 mg PO X1 ONE Stop: 07/06/24 18:52 Last Admin: 07/06/24 19:40 Dose: 1,000 mg Ceftriaxone Sodium/Dextrose (Rocephin/D5w 1gm Iv Premix) 1 gm in 50 mls @ 100 mls/hr IV X1 ONE Stop: 07/06/24 19:20 Last Infusion: 07/06/24 20:53 Dose: Infused Sodium Chloride (Ns) 1,000 mls @ 999 mls/hr IV .Q1H1M ONE Stop: 07/06/24 19:52 Last Infusion: 07/06/24 22:55 Dose: Infused Potassium Chloride (Kcl Ivpb) 10 meq in 100 mls @ 100 mls/hr IV Q1H KODY Stop: 07/07/24 01:00 Last Infusion: 07/07/24 01:14 Dose: Infused Potassium Phosphate (Pot Phos 15 Mmol In Ns 250 Ml) 15 mmol in 250 mls @ 62.5 mls/hr IV Q4H KODY Stop: 07/07/24 05:01 Last Admin: 07/07/24 06:18 Dose: 62.5 mls/hr Sodium Chloride (Ns) 500 mls @ 999 mls/hr IV .Q31M ONE Stop: 07/07/24 00:20 Last Infusion: 07/07/24 01:21 Dose: Infused Sodium Chloride (Ns) 1,000 mls @ 999 mls/hr IV .Q1H1M ONE Stop: 07/07/24 01:07 Last Infusion: 07/07/24 01:22 Dose: Infused Potassium Chloride (Kcl Ivpb) 10 meq in 100 mls @ 100 mls/hr IV Q1H [facility] Stop: 07/07/24 03:44 Last Infusion: 07/07/24 05:15 Dose: Infused Piperacillin/Tazobactam/Dextrose (Zosyn) 3.375 gm in 50 mls @ 100 mls/hr IV X1 ONE Stop: 07/07/24 08:16 Last Infusion: 07/07/24 09:05 Dose: Infused Assessment & Plan Plan 28-year-old female G4, P5 (all term pregnancies, 1 set of twins) with past medical history of gastric ulcer presenting to the ED on 07/07 with episodes of nausea/vomiting/diarrhea along with fever and chills will be admitted for sepsis secondary to urinary tract infection and started on IV antibiotics. #Sepsis secondary to urinary tract infection #Thrombocytopenia Patient presenting to the ED with nausea/vomiting/diarrhea along with fevers Patient denies any dysuria, urinary frequency but does state that she has left CVA tenderness which is evident on physical exam Patient does have a history of septic shock secondary to urinary tract infection in the past with endorgan dysfunction Currently presenting with early signs of urinary tract infection and sepsis (tachycardia, febrile) with thrombocytopenia, elevated Pro-Dave Urinalysis shows turbid urine with 3+ proteinuria, 3+ hematuria, pyuria and bacteria Beta-hCG negative. Chest x-ray showed no active disease, EKG showed sinus tachycardia with left axis deviation but no concerning ST changes, CT abdomen pelvis initially showed a 14 mm cyst/early abscess in the posterior left kidney,renal ultrasound showed mild bilateral renal parenchymal scar but no hydronephrosis In the ED, patient was given sepsis bolus 2.5 L along with 1 g of ceftriaxone Plan: Started patient on IV Zosyn 3.375 Q8 hours Urine and blood cultures pending #Normocytic anemia Hemoglobin 11.8 with MCV of 84 Differentials include: Iron deficiency anemia, anemia of chronic disease, vitamin deficiency, hemolytic anemia; less likely to be bone marrow suppression Patient does have elevated LDH but bilirubin is high normal at 1.2; cannot rule out hemolytic anemia Plan: Follow-up on iron panel, ferritin Reticulocyte count Peripheral blood smear #Electrolyte abnormalities #Hypokalemia #Hypophosphatemia #Hypomagnesemia #Hyponatremia As per HPI, patient has been having nausea/vomiting/diarrhea since Monday which has been on and off On examination patient has CVA tenderness but otherwise no abdominal distention or tenderness CT scan does not mention any other concerning intra-abdominal process Plan: IV fluid resuscitation Electrolyte repletion Follow-up morning labs #Fundal mass, ruled out CT showed 10 mm uterine fundal mass Pelvic ultrasound showed no ureteral or intrauterine mass Plan: Monitor for any acute changes Hospital Management: Lines: PIV Diet: Regular Bowel: Senna as needed GI prophylaxis: Not needed DVT prophylaxis: Holding, thrombocytopenia Dispo: IV antibiotics for sepsis secondary to UTI, pending cultures Code: Full Patient seen and examined with attending Dr. Scott Leblanc, PGY-1 Attending Provider Attestation/Addendum I, Candice Chavez DO, attest that I was physically present for the ramírez portions of the service and evaluated the patient with the resident and I reviewed and discussed the case with the resident and agree with the resident's findings and plans of care as documented above Patient is a 28-year-old female with past medical history of E. coli bacteremia and acute renal failure who presented to the ED with 4 days of worsening generalized weakness, fevers and chills. She endorses having poor p.o. intake and diarrhea. She states that the symptoms began when she was at work 4 days ago but shortly resolved. Overnight, patient started feeling very weak, dizzy and nauseous prompting her to come to the ED. She endorses having some mild discomfort in her left side of her abdomen. However, she denies any urinary symptoms including increased urinary frequency or dysuria. Patient states that she had been previously transferred from this hospital due to concern for GBS, but was later treated for septic shock secondary to E. coli bacteremia. In the ED, patient had a CT abdomen and pelvis that was done showing findings consistent with left pyelonephritis, 14 mm cyst versus early abscess in the posterior left kidney. A renal ultrasound was then done showing no evidence of abscess or hydronephrosis. She is noted to have hyponatremia of 125, hypokalemia of 2.5, JAIME with creatinine of 1.2, lactic acidosis of 2.6, hypophosphatemia 0.9. UA is positive for 3+ bacteria. On exam, patient was noted to have left CVA tenderness. Will admit patient to med/telemetry for further workup and medical management of sepsis secondary to left pyelonephritis. Blood pressures have been low- normal. Will follow-up with blood and urine cultures. Will continue with IV Zosyn to cover for pyelonephritis and IV fluids. Will replete electrolytes and repeat renal panel in afternoon.
[2024-07-07] MEDS: Magnesium Sulfate 4 GM Ivpb 4 GM/50 ML BAG IV (09:58)
[2024-07-07] MEDS: ACETAMINOPHEN 325 MG TABLET 650 MG PO (10:08)
--- NOTE | 2024-07-07 10:11 | PC.CC ---
Initial: KACY Ross completed an initial assessment with the pt at bedside in ER #[id number]. Upon entry pt was viewed to be alert, oriented and coherent. MATEUSW introduced self, role, and reason for assessment as pt will be admitted to the hospital. Pt reports she resides with her spouse Vargas Esquivel [phone] and confirmed her demographics as well as medical insurance. Pt reports that prior to entering the hospital, she was able to ambulate all on her own with no use of DME at all. Pt reports she is able to cook, clean and bathe with no assistance. Pt reports she does not need In-home supportive services and reports that in the event she is unable to make her own decisions, her spouse Vargas Esquivel [phone] will become her decision maker. Pt reports she is a Full Code. Pt states that upon discharge she will return home and is not interested in SNF placement if that is offered. Pt reports her PCP is a provider at [facility], but unsure of the providers name. Pt denies having a specialist and denies having a Power of Hand Tier. Pt reports her pharmacy of choice is [facility]. At this time, pt does not report any needs or concerns. Next of Kin/Person to Notify/Decision Maker: spouse Vargas Esquivel [phone] Needs: None at this time Transportation: spouse Vargas Esquivel [phone] Pt is from home and will return home.
--- NOTE | 2024-07-07 10:18 | XR_ITS ---
Examination: Pelvic ultrasound, transabdominal, complete Technique: Transabdominal ultrasound of the pelvis performed using grayscale imaging Date and time of exam: July 07, 2024 at 10:55 AM Indications: Uterine fundal mass on CT pelvis study today, flank pain fever vomiting diarrhea 6 days Findings: Uterus 10.5 cm endometrial stripe 0.5 cm No uterine mass or intrauterine gestation Ovaries obscured by bowel gas Impression: No uterine mass or intrauterine gestation
[2024-07-07 10:52] LABS: Albumin, Serum 3.6 gm/dL (3.5-5.0); Anion Gap 8 (7-16); BUN/Creatinine Ratio 14 Ratio (12-20); Blood Urea Nitrogen 10 mg/dL (9-23); Calcium 7.4 mg/dL (8.3-10.6); Calcium (Corrected) 7.7 mg/dL (8.5-10.1); Carbon Dioxide 18.8 mMol/L (20.0-31.0); Chloride 107 mMol/L (98-107); Creatinine (Component) 0.7 mg/dL (0.6-1.3); Estimated Creatinine Clearance 100.5 mL/min (>60); Glucose 105 mg/dL (74-106); Osmolality,Calculated 267 (275-295); Phosphorous 1.8 mg/dL (2.4-5.1); Potassium 3.2 mMol/L (3.4-5.1); Sodium 134 mMol/L (136-145); eGFR > 60 See Note
--- NOTE | 2024-07-07 12:00 | PC.NURSE ---
lunch tray provided.
--- NOTE | 2024-07-07 14:11 | PD.EDADDENDU ---
Emergency Room Addendum Addendum Narrative: 1411: Patient was already admitted but decided to leave AMA. This patient is choosing to leave against medical advice. I have personally explained to the patient that choosing to do so may result in permanent bodily harm or . I discussed a great length that without further evaluation and monitoring there may be unforeseen circumstances and deterioration causing permanent bodily harm or as a result of their choice. The patient is alert, oriented and competent at this time. The patient states that they are aware of the serious risks as explained, but they continue to wish to leave against medical advice. In light of their decision to leave AMA, follow-up has been arranged and they are aware of the importance of following up as instructed. They have been advised that they should return to the ED immediately if they change their mind at any time, or if their condition begins to change or worsen. 1421: I contacted the resident working with the hospitalist and they will come talk to the patient.
--- NOTE | 2024-07-07 14:24 | PC.NURSE ---
PT REQUESTING TO LEAVE AMA. RESIDENT FRANCISCO CONTACTED. HERE TO SPEAK WITH PT.
--- NOTE | 2024-07-07 14:40 | PC.NURSE ---
AMA form signed, Dr. monge. Pt notified prescription will be sent to [facility] pharmacy for excelsior picker, encouraged to follow up out patient.
--- NOTE | 2024-07-07 15:41 | PD.RESEVENT ---
Documentation for date of: 07/07/24 Event Note Event Note: Received a call from the ED stating that the patient would like to leave AGAINST MEDICAL ADVICE. Spoke to the patient regarding her reasoning behind wanting to leave. She stated that she has 5 kids that she has to take care of and cited being asymptomatic at this time. Acknowledged patient's concerns; however, reiterated that the patient should be admitted for workup of urinary tract infection. Explained to the patient that once urine cultures result we would have a better idea of the pathogen causing her UTI. Patient stated that she would prefer oral regimen compared to IV and she does not feel that sick presently. Reiterated to the patient that her presentation is abnormal especially since her electrolytes were severely depleted. Risks include, but not limited to, overwhelming sepsis that may lead to permanent disability or sudden . Even so, patient stated that she would like to leave AMA and understood the risks associated with not being admitted and treated correctly. Anant Leblanc, PGY-1
== END 2024-07-07 15:41 | disposition left against medical advice (07) | DRG 720 ==
LOC: SERX 07-07 06:47 → SERHOLD 07-07 10:03
PROVIDERS: Physician Assistant; Admitting Provider Internal Medicine; Emergency Provider Emergency Medicine; PCP Nurse Practitioner Family; Visit Provider Internal Medicine
DX: A41.9 Sepsis, unspecified organism (principal); D69.6 Thrombocytopenia, unspecified; N39.0 Urinary tract infection, site not specified; D64.9 Anemia, unspecified; E87.6 Hypokalemia; E83.39 Other disorders of phosphorus metabolism; E83.42 Hypomagnesemia; E87.20 Acidosis, unspecified; E87.1 Hypo-osmolality and hyponatremia; N17.9 Acute kidney failure, unspecified; Z53.29 Procedure and treatment not carried out because of patient's decision for other reasons; Z87.440 Personal history of urinary (tract) infections; N12 Tubulo-interstitial nephritis, not specified as acute or chronic; Z87.11 Personal history of peptic ulcer disease
CPT/HCPCS: 36415; 71046; 74177; 76770; 76856; 80053; 80069; 81001; 81025; 82728; 83540; 83550; 83605; 83615; 83690; 83735; 83880; 84100; 84145; 84484; 85025; 85046; 85610; 85730; 87040; 87077; 87086; 87186; 87400; 87811; 96360; 96361; 96365; 96366; 96367; 99285; A4649; J0696; J2543; J3475; J3480; J7030; J7040; J7999; Q9967; A9270

== ENCOUNTER 2024-08-04 01:30 | Emergency (ER) | payer MEDICAID, SELFPAY ==
[2024-08-04 01:44] VITALS: PULSE 98; O2SAT 97; BMI 27.9
--- NOTE | 2024-08-04 02:39 | PC.NURSE ---
NA ANSWER FOR RME AND VITALS
--- NOTE | 2024-08-04 02:53 | PD.EDADDENDU ---
Emergency Room Addendum Addendum Narrative: Before I saw the patient, patient eloped. Harinder Mar MD
== END 2024-08-04 03:00 | disposition left against medical advice (07) ==
LOC: SERX 03:05
PROVIDERS: Emergency Provider Emergency Medicine
DX: Z53.21 Procedure and treatment not carried out due to patient leaving prior to being seen by health care provider (principal)

== ENCOUNTER 2025-02-16 02:52 | Emergency (ER) | payer MEDICAID, SELFPAY ==
[2025-02-16 02:53] VITALS: BMI 20.3
[2025-02-16 03:06] VITALS: BP 110/63; RESP 19; TEMP 37.6; O2SAT 96
--- NOTE | 2025-02-16 03:13 | XR_ITS ---
Examination: CT abdomen and pelvis without contrast. Coronal 3-D reconstructions. Sagittal 2-D reconstructions. Date and time of exam: February 16, 2025, 0440 hours, comparison July 07, 2024 INDICATIONS: Left lower abdominal pain beginning 1 week ago CTDI: vol (mGy): 7.07 DLP: (mGycm): 378 Technique: Axial images of the abdomen have been obtained, 3 mm slice thickness Intravenous contrast material has not been administered. Low dose protocols were performed. One or more of the following dose reduction techniques were used; automated exposure control, adjustment of the mA and/or KV according to patient size, use of iterative reconstruction technique. Findings: No focal liver or splenic lesions No gallstones No pancreatic or adrenal mass Moderate renal scar formation, no renal or ureteral calculi, no hydronephrosis Aorta normal size Normal appendix No bowel obstruction or diverticulitis Retroverted uterus, no pelvic mass Bladder intact Intact osseous structures IMPRESSION: No acute process in the abdomen or pelvis
--- NOTE | 2025-02-16 03:14 | PD.EDRME ---
Rapid Medical Screening Exam E Arrival date/time: 02/16/25 02:52 This is a case of 29-year-old female with no medical history came in in the emergency room due to left-sided abdominal pain with nausea vomiting for 3 days worsening of the symptoms this patient decided to sought consult here in the emergency room Chief Complaint: Abdominal Pain Time Seen by Provider: 02/16/25 03:13 Vital signs: Vital Signs Temperature 99.7 F 02/16/25 03:06 Respiratory Rate 19 02/16/25 03:06 Blood Pressure 110/63 02/16/25 03:06 Pulse Oximetry (%) 96 02/16/25 03:06 Exam: Moderate tenderness in left upper and left lower quadrant no guarding no rebound no rigidity Clinical Impression: Abdominal pain
[2025-02-16 03:59] LABS: Basophils # (Auto) 0.0 Thou/mm3 (0.0-0.2); Basophils % (Auto) 1 % (0-2.5); Eosinophils # (Auto) 0.1 Thou/mm3 (0.0-0.5); Eosinophils % (Auto) 1 % (0-10); Hematocrit 34.4 % (36.0-46.0); Hemoglobin 11.0 g/dL (12.0-16.0); Immature Granulocytes Auto 0.04 Thou/mm3 (0.00-0.00); Lymphocytes # (Auto) 0.8 Thou/mm3 (1.0-4.8); Lymphocytes % (Auto) 10 % (10-50); Mean Corpuscular HGB Conc 32.0 g/dl (31.0-37.0); Mean Corpuscular Hemoglobin 27.7 pg (25.0-35.0); Mean Corpuscular Volume 87 fL (80-100); Monocytes # (Auto) 1.1 Thou/mm3 (0.0-0.8); Monocytes % (Auto) 15 % (0-12); Neutrophils # (Auto) 5.6 Thou/mm3 (1.8-7.7); Neutrophils % (Auto) 74 % (37-80); Nucleated Red Blood Cell # 0.00 Thou/mm3 (0.00-0.00); Nucleated Red Blood Cell % 0 /100 WBC (0); Platelet Count 146 Thou/mm3 (140-440); RDW Standard Deviation 47.1 fL (36.4-46.3); Red Blood Count 3.97 Miln/mm3 (4.00-5.20); White Blood Count 7.6 Thou/mm3 (3.6-11.0)
[2025-02-16 04:11] LABS: Collection Type, Urine Clean Catch
[2025-02-16 04:17] LABS: HCG Qualitative,Urine Negative
[2025-02-16 04:21] LABS: Bacteria,Urine Rare; Bilirubin,Urine Negative (Negative); Blood,Urine Negative (Negative); Clarity,Urine Clear (Clear/Hazy); Color,Urine Lt-Yellow (Lt Yel-Yel); Glucose, Urine Negative (Negative); Ketones,Urine Negative (Negative); Leukocyte Esterase,Urine Positive (Negative); Nitrite,Urine Positive (Negative); PH,Urine 6.0 (5.0-7.0); Protein,Urine Negative (Neg - Trace); RBC,Urine 4 /hpf (0-3); Specific Gravity,Urine 1.005 (1.001-1.035); Squamous Epithelial Cell,Urine 6 /hpf (0-5); Urobilinogen,Urine Negative mg/dL (0.0-1.0); WBC,Urine 9 /hpf (0-5)
[2025-02-16 04:24] LABS: Alanine Aminotransferase 16 U/L (10-49); Albumin, Serum 4.7 gm/dL (3.5-5.0); Albumin/Globulin Ratio 1.1 (1.2-2.2); Alkaline Phosphatase 85 U/L (46-116); Anion Gap 15 (7-16); Aspartate Amino Transferase 57 U/L (0-34); BUN/Creatinine Ratio 7 Ratio (12-20); Bilirubin,Total 0.3 mg/dL (0.3-1.2); Blood Urea Nitrogen < 5 mg/dL (9-23); Calcium 9.1 mg/dL (8.3-10.6); Calcium (Corrected) 9.1 mg/dL (8.5-10.1); Carbon Dioxide 22.5 mMol/L (20.0-31.0); Chloride 104 mMol/L (98-107); Creatinine (Component) 0.7 mg/dL (0.6-1.3); Estimated Creatinine Clearance 108.4 mL/min (>60); Globulin 4.1 gm/dL (2.3-3.5); Glucose 99 mg/dL (74-106); Lipase 36 U/L (12-53); Osmolality,Calculated 278 (275-295); Potassium 3.4 mMol/L (3.4-5.1); Sodium 141 mMol/L (136-145); Total Protein 8.8 gm/dL (5.7-8.2); eGFR > 60 See Note
--- NOTE | 2025-02-16 05:28 | PRELIM_ITS ---
CT scan of the abdomen and pelvis without intravenous contrast (axial sections with sagittal and coronal reformats) February 16, 2025 0440 hours Clinical History: Abd pain Comparison: None available at the time of this report. Findings: The lung bases are clear. The liver, gallbladder, pancreas, spleen, kidneys and adrenals are unremarkable on this noncontrast study. No evidence of bowel obstruction. No evidence of appendicitis. There is no mesenteric or retroperitoneal adenopathy. The urinary bladder is nondistended, limited evaluation. There is no free fluid or free air. The osseous structures are unremarkable. The uterus and ovaries are within normal limits. Impression: No evidence of acute intra-abdominal or pelvic pathology. Report Electronically Signed By: Rickey Schwartz 02/16/2025 5:27:54 AM [EST]
--- NOTE | 2025-02-16 05:52 | EDNOTE_ITS ---
ED Abdominal Pain RME/HPI General Chief Complaint: Abdominal Pain Stated complaint: LLQ ABD PAIN X 1 WEEK Time seen by provider: 02/16/25 03:13 Arrival date/time: 02/16/25 02:52 This is a case of 29-year-old female who came into the emergency room due to left lower quadrant abdominal pain no other sx noted Limitations: no limitations RME / HPI RME / HPI narrative: 02/16/25 02:52 This is a case of 29-year-old female with no medical history came in in the emergency room due to left-sided abdominal pain with nausea vomiting for 3 days worsening of the symptoms this patient decided to sought consult here in the emergency room Exam: Moderate tenderness in left upper and left lower quadrant no guarding no rebound no rigidity Impression: Abdominal pain Related Data Home Medications ?Medication ?Instructions ?Recorded ?Confirmed ferrous sulfate 325 mg (65 mg 325 mg PO QDAY 12/02/18 12/03/18 iron) tablet vitamins-iron fumarate 27 1 tab PO QDAY 12/0212/03/18 mg iron-folic acid 0.8 mg tablet ( Vitamin) Previous Rx's ?Medication ?Instructions ?Recorded famotidine 40 mg tablet 40 mg PO QDAY #30 tabs 04/14 omeprazole 40 mg capsule,delayed 40 mg PO QDAY #30 cap s 04/14/24 release cephalexin 500 mg capsule 500 mg PO QID #40 caps 02/16 ondansetron 4 mg disintegrating 4 mg PO Q8H #20 tabs 1 04/19/24 tablet Allergies Allergy/AdvReac Type Severity Reaction Status Date / Time No Known Allergies Allergy Verified 07/06/24 18:13 Review of Systems Review of Systems Systems Reviewed: All systems reviewed, normal except as documented Past Medical History Past Medical History CARDIAC: Negative Cardiac Disorders or Congestive Heart Failure RESPIRATORY: Negative Chronic Obstructive Pulmonary Disease (COPD) or Asthma GENITOURINARY: Positive Genitourinary Disorders (UTI); Negative Renal Disease REPRODUCTIVE: Positive Previous Pregnancies (x2) ENDOCRINE: Negative Diabetes Mellitus Type 1 or Diabetes Mellitus Type 2 HEMATOLOGIC: Positive Anemia; Negative Sickle Cell Disease Family History FAMILY HISTORY: Positive Family Cancer (mother colon) and Family Surgery (mother cancer related) Surgical History SURGICAL: Negative Section Social History SMOKING STATUS: Never smoker ED Exam General Limitations: Present no limitations General appearance: Present alert, in no apparent distress and other (Patient is awake alert oriented not in distress nontoxic looking well-hydrated well- nourished) Head Head exam: Present atraumatic, normocephalic and normal inspection Eye Eye exam: Present normal appearance, PERRL and EOMI ENT ENT exam: Present normal exam, normal oropharynx and mucous membranes moist Neck Neck exam: Present normal inspection, full ROM and trachea midline Chest Chest inspection: Present normal inspection and symmetric chest wall rise Respiratory Respiratory exam: Present normal lung sounds bilaterally Cardiovascular Cardiovascular exam: Present regular rate, normal rhythm and normal heart sounds Abdominal Exam Abdominal exam: Present soft, tenderness (Mild tenderness on the left lower quadrant no guarding no rebound no rigidity), normal bowel sounds and other (No CVA tenderness); Absent distention, guarding, rebound, rigidity, diminished bowel sounds, hyperactive bowel sounds, hypoactive bowel sounds, psoas sign, obturator sign, Mccoy's sign, tenderness at McBurney's Point or hernia Extremities Exam Extremities exam: Present normal inspection and full ROM Back Exam Back exam: Present normal inspection and full ROM Neurological Exam Neurological exam: Present alert, oriented X3, CN II-XII intact, normal gait and reflexes normal; Absent motor sensory deficit Psychiatric Psychiatric exam: Present normal affect and normal mood Skin Skin exam: Present warm, dry, intact, normal color and other (excellent skin turgor) Course Quality Measures none Orders Category Date Time Status CT abdomen pelvis wo con Stat Exams 02/16/25 03:13 Completed CBC Stat Lab 02/16/25 03:43 Completed Comprehensive Metabolic Panel Stat Lab 02/16/25 03:43 Completed HCG Qualitative,Urine Stat Lab 02/16/25 03:39 Completed Lipase Stat Lab 02/16/25 03:43 Completed Urinalysis Stat Lab 02/16/25 03:39 Completed Ketorolac Inj [Toradol Inj] Med 02/16/25 05:52 Discontinued 30 mg IVP X1 ONE Ondansetron Inj [Zofran Inj] Med 02/16/25 05:52 Discontinued 4 mg IVP X1 ONE Pantoprazole Inj [Protonix Inj] Med 02/16/25 05:59 Discontinued 40 mg IVP X1 ONE Sodium Chloride 0.9% 1000 ml [Ns] 1,000 ml Med 02/16/25 05:52 Discontinued IV 999 mls/hr cefTRIAXone/D5w 1gm IV premix [Rocephin/D5w 1gm IV Med 02/16/25 05:52 Discontinued premix] 1 gm in 50 ml IV X1 Vital Signs Vital signs: Vital Signs Temperature 99.7 F 02/16/25 03:06 Respiratory Rate 19 02/16/25 03:06 Blood Pressure 110/63 02/16/25 03:06 Pulse Oximetry (%) 96 02/16/25 03:06 vs stable Abdominal Pain MDM MDM Narrative MDM Narrative:: Patient was discharged with comfortable condition walking with stable gait. Patient verbalized no further complains explained diagnosis and answered patient question. Patient is comfortable with the proposed management plan including the need to follow up with his/her primary care physician and any specialist if applicable Discussed patient for any urgent condition or worsening sx, He/She needed to go to emergency room immediately or call 911. Patient acknowledge the responsibility to follow up as instructed and to monitor her/his symptoms. For any persistence of the symptoms for more than 3-5 days return precaution advised. Discussed the result of the test and was given printed discharge instruction Patient data External records reviewed:: [facility] previous records Clinical information provided by:: patient Social determinants that could affect healthcare access:: none Patient has the following chronic illnesses:: none How is presenting disease/condition affected by chronic disease/condition?: no chronic disease Evaluation data The following diagnostics were reviewed and interpreted by me:: lab results and radiology exam(s) Lab and/or radiology exams considered but not ordered:: reviewed Interpretation Summary: reviewed Medications / Prescriptions Medications or Prescriptions considered but not ordered:: given Medication administrations:: Medication Administration History Discontinued Medications Sodium Chloride (Ns) 1,000 mls @ 999 mls/hr IV .Q1H1M ONE Stop: 02/16/25 06:52 Last Admin: 02/16/25 06:06 Dose: Not Given Documented By: SE Non-Admin Reason: Cancelled by Provider Ceftriaxone Sodium/Dextrose (Rocephin/D5w 1gm Iv Premix) 1 gm in 50 mls @ 100 mls/hr IV X1 ONE Stop: 02/16/25 06:21 Last Admin: 02/16/25 06:05 Dose: Not Given Documented By: SE Non-Admin Reason: Cancelled by Provider Ketorolac Tromethamine (Ketorolac Inj 30 Mg/Ml Vial) 30 mg IVP X1 ONE Stop: 02/16/25 05:53 Last Admin: 02/16/25 06:05 Dose: Not Given Documented By: SE Non-Admin Reason: Cancelled by Provider Ondansetron HCl (Ondansetron Inj 2 Mg/Ml Inj 2 Ml) 4 mg IVP X1 ONE; Protocol Stop: 02/16/25 05:53 Last Admin: 02/16/25 06:05 Dose: Not Given Documented By: SE Non-Admin Reason: Cancelled by Provider Pantoprazole Sodium (Pantoprazole Inj 40 Mg Vial) 40 mg IVP X1 ONE Stop: 02/16/25 06:00 Last Admin: 02/16/25 06:06 Dose: Not Given Documented By: SE Non-Admin Reason: Cancelled by Provider given Consultations Consultation(s) initiated? (list below): No Diagnosis Differential diagnosis abdominal pain: abdominal pain, acute appendicitis and calculus of kidney Most likely diagnosis given after review of the tests above:: gastritis urinary tract infection Admission Indicated Admission indicated?: not indicated Explain why admission is indicated or not indicated:: not indicated Admission Request Was there a request for admission?: No Admission Attestation Admission request attestation: not indicated Disposition Plan Disposition Plan: Discharge Discharge Attestation Discharge Attestation: The patient and all family members were given an opportunity to ask questions and understood the discharge instructions. Discharge instructions specifically effects, indications for sooner follow up or return to the emergency department, and the expected course of current diagnosis. Patient condition: Stable Discharge Plan Plan Patient Disposition: HOME (Self Care) Patient condition on transfer: Stable Prescriptions/Referrals Prescriptions/Med Rec: New cephalexin 500 mg capsule 500 mg PO QID Qty: 40 0RF ondansetron 4 mg tablet,disintegrating 4 mg PO Q8H Qty: 20 0RF No Action ferrous sulfate 325 mg (65 mg iron) Tablet 325 mg PO QDAY Vitamin 27 mg iron- 0.8 mg Tablet 1 tab PO QDAY famotidine 40 mg tablet 40 mg PO QDAY Qty: 30 0RF omeprazole 40 mg capsule,delayed release(DR/EC) 40 mg PO QDAY Qty: 30 0RF Referrals: No Primary/Family,Physician [Primary Care Provider] - In 1 week Problem List Clinical Impression: Abdominal pain, Gastritis, Urinary tract infection Patient/Caregiver Discharge Instructions Education Materials: Abdominal Pain, Urinary Tract Infections in Women, ED Gastritis (Adult) Additional Instructions: Follow-up with your primary care physician in 2 days for reevaluation and to be referred to retail client manager for further evaluation and treatment of your gastritis possible EGD if recurrence persistent worsening symptoms or any emergent concern call 911 or go to the nearest emergency room take your medication as directed keep hydrated Pedialyte Gatorade for hydration finish the course of antibiotic no skipping of meals no spicy food avoid fatty fried high cholesterol food avoid alcohol soda coffee Print Language: Austrian Stand Alone Forms: Lucie Award Info., Patient Portal Info Letter PA/REPAIRER RECREATIONAL VEHICLE Supervising Physician PA/REPAIRER RECREATIONAL VEHICLE Supervising Physician: Dr. Wilson
--- NOTE | 2025-02-16 06:22 | PC.NURSE ---
PER DR TRAN HE WANTS ALL ORDERS CANCELLED AT THIS TIME. DR TRAN WANTS TO RE-EVALUATE PT FIRST.
== END 2025-02-16 06:28 | disposition home or self-care (01) ==
PROVIDERS: Nurse Practitioner Family; Emergency Provider Emergency Medicine
DX: K29.70 Gastritis, unspecified, without bleeding (principal); N39.0 Urinary tract infection, site not specified
CPT/HCPCS: 36415; 74176; 80053; 81001; 81025; 83690; 85025; 99283